=== PATIENT | female | born 1945 | race African-American/Black ===

== ENCOUNTER → 2019-08-06 | Outpatient (CLI) | payer MEDICARE, OTHER ==
[~2019-08-06] MED LIST: ALLERGY RELIEF PO; ARICEPT5 MG PO; ASPIR 8181 MG PO; CRESTOR10 MG PO; DIOVAN160 MG PO; GABAPENTIN300 MG PO; IBUPROFEN PO; LISINOPRIL20 MG PO; MELOXICAM15 MG PO; MULTIVITAMINS1 EAC8 PO; NORCO 5-325 TA1 EACH PO; ROBAXIN500 MG PO; SIMVASTATIN40 MG PO; SINGULAIR10 MG PO; ULTRAM 50MG50 MG PO; VITAMIN E PO; VITAMIN E400 UNI2 PO; XARELTO10 MG PO
[2019-08-06 12:29] LABS: BASOPHILS % 0.3 % (0.0-1.0); EOSINOPHILS # (AUTO) 0.1 (0.0-0.4); EOSINOPHILS % 0.9 % (0.0-6.0); HEMATOCRIT 41.3 % (34.2-44.1); HEMOGLOBIN 13.7 g/dL (12.0-16.0); LYMPHOCYTES # (AUTO) 1.5 (1.0-3.2); LYMPHOCYTES % 24.1 % (18.0-39.1); MEAN CORPUSCULAR HEMOGLOBIN 29.5 pg (28-32); MEAN CORPUSCULAR HGB CONC 33.2 g/dL (31-35); MEAN CORPUSCULAR VOLUME 88.8 fL (81-99); MONOCYTES # (AUTO) 0.3 (0.2-0.8); MONOCYTES % 5.3 % (4.4-11.3); NEUTROPHILS # (AUTO) 4.4 (2.1-6.9); NEUTROPHILS % 69.1 % (38.7-80.0); PLATELET COUNT 186 x10e3/uL (140-360); RED BLOOD COUNT 4.65 x10e6/uL (3.6-5.1); RED CELL DISTRIBUTION WIDTH 14.4 % (11.7-14.4)
[2019-08-06 12:42] LABS: CLARITY,URINE CLEAR (CLEAR); COLOR,URINE YELLOW (YELLOW); LEUKOCYTE ESTERASE ,URINE NEGATIVE (NEGATIVE); NITRITE,URINE NEGATIVE (NEGATIVE)
[2019-08-06 12:43] LABS: BILIRUBIN,URINE NEGATIVE (NEGATIVE); KETONES,URINE NEGATIVE (NEGATIVE); PROTEIN,URINE DIPSTICK NEGATIVE (NEGATIVE); URINE UROBILINOGEN 0.2 mg/dL (0.2 - 1)
[2019-08-06 12:44] LABS: ANION GAP 13.7 mmol/L (8-16); BLOOD UREA NITROGEN 11 mg/dL (7-26); BUN/CREATININE RATIO 12 (6-25); CALCIUM 9.7 mg/dL (8.4-10.2); CARBON DIOXIDE 29 mmol/L (22-29); CHLORIDE 104 mmol/L (98-107); CREATININE, SERUM 0.92 mg/dL (0.57-1.11); EST GLOMERULAR FILTRATION RATE > 60 ML/MIN (60-); GLUCOSE 84 mg/dL (74-118); POTASSIUM 3.7 mmol/L (3.5-5.1); SODIUM 143 mmol/L (136-145)
--- NOTE | 2019-08-06 12:54 | Diagnostic Imaging Report ---
EXAMINATION: CHEST 2 VIEWS INDICATION: Pre-operative COMPARISON: None FINDINGS: LINES/TUBES:None LUNGS:The lungs are well-inflated. No focal consolidation or pulmonary edema. PLEURA:No pleural effusion or pneumothorax. MEDIASTINUM:The cardiomediastinal silhouette appears normal in size and shape. BONES/SOFT TISSUES:No acute osseous injury. ABDOMEN:No free air under the diaphragm. IMPRESSION: No focal pneumonia or pulmonary edema. Signed by: Eliel Keane MD on 08/06/2019 12:52 PM
== END ==
LOC: RAD 05:00 → EDSTATUS 08-10 13:00
PROVIDERS: ATTEND Specialist
DX: Z01.818 Encounter for other preprocedural examination (principal); M17.11 Unilateral primary osteoarthritis, right knee
CPT/HCPCS: 36415; 71046; 80048; 81003; 85025; 86850; 86900; 93005

== ENCOUNTER 2019-08-31 10:01 | Observation (INO) | payer OTHER ==
[~2019-08-31] VITALS: Ht 167.6 cm; Wt 94.8 kg
[~2019-08-31 10:01] MED LIST changes: -NORCO 5-325 TA1 EACH PO; -XARELTO10 MG PO
--- OUTSIDE RECORDS SUMMARY | 2019-08-31 10:16 | XMS REPORT ---
Author Author [facility] Address Unknown Phone Unavailable Care Team Providers Care Byproducts Operator Name Role Phone LIBRA GARCIA Unavailable Unavailable Problems This patient has no known problems. Allergies, Adverse Reactions, Alerts This patient has no known allergies or adverse reactions. Medications This patient has no known medications. Results Test Description Test Time Test Comments Text Results Atomic Results Result Comments CHEST 2 VIEWS 2019-08-06 12:52:00 [place] [address] Patient Name: MANDI ANGELA MR #: [id number] : 1945 Age/Sex: 74/F Req #: [id number] Adm Physician: Ordered by: LIBRA GARCIA MD Report #: [id number] Location: OR Room/Bed: Procedure: [id number] DX/CHEST 2 VIEWS Exam Date: 08/06/19 Exam Time: 1233 REPORT STATUS: Signed EXAMINATION: CHEST 2 VIEWS INDICATION: Pre-operative COMPARISON: None FINDINGS: LINES/TUBES:None LUNGS:The lungs are well-inflated. No focal consolidation or pulmonary edema. PLEURA:No pleural effusion or pneumothorax. MEDIASTINUM:The cardiomediastinal silhouette appears normal in size and shape. BONES/SOFT TISSUES:No acute osseous injury. ABDOMEN:No free air under the diaphragm. IMPRESSION: No focal pneumonia or pulmonary edema. Signed by: Gayla Ellington MD on 08/06/2019 12:52 PM Dictated By: GAYLA ELLINGTON MD 125 Transcribed By: ROBERT COBURN on 08/06/191251 COPY TO: LIBRA GARCIA MD
[2019-08-31] MEDS ORDERED: CEFAZOLIN SOD 1 GM/NS 50ML 100 ML IV ONE (10:44)
[2019-08-31] MEDS ORDERED: BACITRACIN 50,000 UNIT VIAL ONE ×2 (11:54→12:10)
[2019-08-31] MEDS ORDERED: NALOXONE HCL INJ 0.4 MG/ML AMP IV PRN (15:45)
[2019-08-31] MEDS ORDERED: HYDROMORPHONE 0.2MG/ML-SOD CHL 30ML PCA SYRINGE IV PRN (15:45)
[2019-08-31] MEDS ORDERED: HYDROMORPHONE 1MG/1ML INJ ONE (15:53)
[2019-08-31] MEDS ORDERED: HYDRALAZINE HCL 20 MG/ML VIAL ONE (16:43)
--- NOTE | 2019-08-31 16:44 | Diagnostic Imaging Report ---
Right knee, 2 views Clinical indications: Postop Comparison: None Findings: Patient is status post right total knee arthroplasty. Alignment is anatomic. No periprosthetic fractures are identified. Signed by: Cornel Alamo MD on 08/31/2019 4:41 PM
[2019-08-31] MEDS ORDERED: FENTANYL CITRATE/PF 100MCG/2 ML INJ ONE ×2 (16:46→18:53)
--- NOTE | 2019-08-31 17:30 | NUR ---
PT TO THE FLOOR FROM PACU. VITALS WNL. PT DENIES NEEDS AT THIS TIME,.
[2019-08-31 17:41] VITALS: BP 113/56
[2019-08-31 18:00] VITALS: BP 113/56
[2019-08-31] MEDS ORDERED: ONDANSETRON HCL INJ 2MG/ML 2ML 2 MG/ML VIAL ONE (18:41)
[2019-08-31] MEDS ORDERED: PROPOFOL IV EMULSION 10 MG/ML 20 ML VIAL ONE (18:41)
[2019-08-31] MEDS ORDERED: DEXAMETHASONE SOD PHOS INJ 4 MG/ML VIAL ONE (18:41)
[2019-08-31] MEDS ORDERED: SEVOFLURANE INHAL SOLN 250 ML PEN BTL ONE (18:41)
[2019-08-31] MEDS ORDERED: GLYCOPYRROLATE INJ 0.2 MG/ML VIAL ONE (18:41)
[2019-08-31] MEDS ORDERED: ACETAMINOPHEN 1000 MG/100 ML IV ONE (18:41)
[2019-08-31] MEDS ORDERED: LIDOCAINE HCL 2% LOCAL INJ 5 ML SDV VIAL INJ ONE (18:41)
[2019-08-31] MEDS: SODIUM CHLORIDE 0.9% 1000ML 1,000 ML IV SCH (18:44)
[2019-08-31] MEDS: ACETAMINOPHEN 1000 MG/100 ML IV SCH (18:45)
[2019-08-31] MEDS ORDERED: ROPIVACAINE 0.5% 5 MG/ML 30 ML SDV ONE (18:47)
[2019-08-31] MEDS ORDERED: MIDAZOLAM HCL 2 MG/2 ML VIAL ONE (18:53)
--- NOTE | 2019-08-31 19:20 | NUR ---
RECEIVED THE PATIENT IN REPORT.STABLE CONDITION.LYEING IN THE BED.MART DRAINING WELL.ON CORPORATE RESPONSIBILITY OFFICER DILAUDID. R.KNEE DRESSING DRY.USES ICS.BED ALARM ON.BED LOCKED AND IN LOWEST POSITION.PHONE AND CALL LIGHT WITHIN REACH.INSTRUCTED TO CALL FOR ASSISTANCE NEEDED.
[2019-08-31 20:00] VITALS: BP 102/63
[2019-08-31 21:02] VITALS: BP 102/63
[2019-08-31] MEDS: CEFAZOLIN SOD 1 GM/NS 50ML 50 ML IV SCH (21:44)
--- NOTE | 2019-08-31 22:30 | NUR ---
CPM APPLIED TO RIGHT LEG @ FLEXION DEGREE 50
[2019-08-31] MEDS: ONDANSETRON HCL INJ 2MG/ML 2ML 2 MG/ML VIAL IV PRN (22:43)
--- NOTE | 2019-08-31 23:52 | Operative Report ---
DATE OF PROCEDURE: 08/31/2019 SURGEON: Dell Rodrigues MD PREOPERATIVE DIAGNOSIS: End-stage arthritis, right knee. POSTOPERATIVE DIAGNOSIS: End-stage arthritis, right knee. OPERATIONS AND PROCEDURE PERFORMED: The patient underwent a right total knee arthroplasty with a size F femoral component, a size 7 tibial component, a 14 mm tibial insert, and a 38 patella button. This is the Ana NexGen knee system. ELECTRICAL AUTOMATION ENGINEER: WINTER Martinez. ANESTHESIA: General endotracheal intubation anesthesia as well as a regional block. IV FLUIDS: As per the anesthesia record. BLOOD LOSS: Approximately 150 mL. COMPLICATIONS: None. BRIEF DESCRIPTION OF THE PATIENT'S OPERATIVE PROCEDURE: Ms. Kim was taken to the operating room, placed in the supine position on the operating table. Following induction of general anesthesia as well as endotracheal intubation, the patient's right lower extremity was examined under anesthesia. She was found to have a valgus aligned lower extremity. Range of motion of the knee joint was well preserved. There was patellofemoral crepitus. There was mild effusion within the knee. The patient's right lower extremity was prepped and draped in standard surgical fashion. The case was begun by creating a linear incision along the long axis of the leg centered over the knee joint. This incision was carried through skin and subcutaneous tissues to the extensor mechanism. Full-thickness skin flaps were elevated medially and the extensor mechanism was fully exposed. The extensor mechanism was then incised along its medial border beginning approximately 8 cm proximal to the patella and extending to just distal to the tibial tubercle. The patella was everted and osteophytes were excised from the patella, tibia and femur. The patella was measured for later reaming. The fat pad was excised and the medial soft tissues were elevated taking care to protect the medial collateral ligament. The anterior horns of the medial and lateral meniscus were also excised at this time. The knee was placed in flexion and retractors were placed about the knee joint protecting the vital neurovascular structures. The anterior and posterior cruciate ligaments were resected. The femur was sized and the 5-in-1 femoral cutting block was affixed to the femur. The femoral cuts were performed. The intercondylar notch cutting block was then affixed to the femur and the notch cut was performed. The finishing block was then affixed to the femur and the posterior chamfer block was performed. Attention was then turned to the tibia. A posterior knee retractor was placed behind the tibia, protecting the vital neurovascular structures. The external tibial alignment guide was affixed to the tibia and adjusted appropriately. The proximal tibia was cut. The keel cutting device was then affixed to the tibia and the keel cut was performed. The trial femoral and tibial inserts were then placed in the knee and the soft tissues were balanced. Trial tibial inserts were inserted into the knee until a stable knee was achieved. The patella was then reamed and a trial patella button was affixed to the undersurface of the patella. The patellofemoral joint was reduced and the knee was placed through motion, found to be stable. All trial components were removed from the knee. The femoral, tibial, and patellar surfaces were prepared for cementation. Cement was mixed on the back table. The femoral, tibial and patellar components were then cemented into place. Once the cement had cured, a 14 mm tibial insert was inserted into the tibial tray. The knee was again reduced and placed in motion, found to be stable. Hemostasis was obtained. The wound was copiously irrigated with bacitracin-laden normal saline. The extensor mechanism was repaired in a [id number]-nooau fashion with nonabsorbable sutures. The remaining soft tissues were closed in a multilayer fashion. Sterile dressings were applied. The sponge and needle counts were correct at the end of the case. Nicole Tyler acted as customer support assistant for this case and was necessary for the prepping and draping the patient as well as the retraction of soft tissues and the closure of the wounds and applications of bandages that allowed this case to be successful. MD DAYLIN Newberry/LANGL /[id number]
[2019-09-01] VITALS (8 sets, daily range): BP systolic 100–152; BP diastolic 59–70
[2019-09-01] MEDS: ACETAMINOPHEN 1000 MG/100 ML IV SCH ×3 (00:02→12:06)
[2019-09-01] MEDS: SODIUM CHLORIDE 0.9% 1000ML 1,000 ML IV SCH ×3 (01:36→18:16)
--- NOTE | 2019-09-01 02:07 | NUR ---
Wolfe care given.resting comfortably in the bed.
[2019-09-01] MEDS: CEFAZOLIN SOD 1 GM/NS 50ML 50 ML IV SCH ×2 (05:52→14:25)
[2019-09-01 06:18] LABS: HEMATOCRIT 32.1 % (34.2-44.1); HEMOGLOBIN 10.3 g/dL (12.0-16.0)
--- NOTE | 2019-09-01 06:21 | NUR ---
MART D/C.CATHETER TIP IS INTACT.PATIENT IS DUE TO VOID.
--- NOTE | 2019-09-01 07:00 | NUR ---
RECEIVED PATIENT AWAKE RESTING IN BED NO S/S OF DISTRESS. BED LOW, WHEELS LOCKED, SIDE RAILS X2. CALL LIGHT IN REACH WILL CONTINUE TO MONITOR PATIENT.
--- NOTE | 2019-09-01 07:00 | NUR ---
BSSR GIVEN TO ONCOMING RN.STABLE CONDITION.
--- NOTE | 2019-09-01 07:58 | NUR ---
NEW ORDER FROM DR. RODRIGUEZ TO DISCONTINUE BRANCH OFFICE MANAGER AND START PATIENT ON DILAUDID 0.5MG IV Q4 PRN. NEW ORDERS IMPLEMENTED.
[2019-09-01] MEDS ORDERED: HYDROMORPHONE 1MG/1ML INJ IV PRN (08:00)
[2019-09-01] MEDS: RIVAROXABAN 10 MG TABLET PO SCH ×2 (08:36→17:09)
--- NOTE | 2019-09-01 08:44 | NUR ---
DISCONTINUED PATIENTS RELIGIOUS ACTIVITIES DIRECTOR PUMP.
--- NOTE | 2019-09-01 08:47 | NUR ---
DR GARCIA OFFICE PREARRANGED FOLLOWING DISCHARGE PLAN OF:GOING HOME [address], SULEMAN LIVES WITH SON CHRISTIAN [phone] HOME HEALTH WITH HOME CARE PROVIDERS CONFIRMED WITH [facility] IN PERSON [facility] 3 IN ONE COMMODE, CPM, ELEVATED TOILET SEAT PROVIDED BY [employer] [phone]. I PROVIDED WALKER WITH WHEELS OBTAINED SIGNATURES AND FILED IN PACU FOR PROCESSING. ASH SIGNED AND ON CHART COPY LEFT WITH PATIENT GAVE CARD FOR QUESTIONS AND OR CONCERNS.
--- NOTE | 2019-09-01 10:20 | NUR ---
PATIENT HAS VOIDED SINCE MART REMOVAL.
[2019-09-01] MEDS: HYDROCODONE/APAP 5MG-325MG TAB PO PRN ×2 (10:35→18:15)
--- NOTE | 2019-09-01 10:54 | Consultation ---
DATE OF CONSULTATION: 09/01/2019 REASON FOR CONSULTATION: Medical management. HISTORY OF PRESENT ILLNESS: This is a 74-year-old woman, who was admitted to [facility] with diagnosis of end-stage right knee degenerative joint disease. Yesterday, the patient underwent successful right total knee replacement. On August 06, 2019, patient's hemoglobin was 13.7 g/dL. Today one day after surgery, patient's hemoglobin is 10.3 g/dL. The patient complains of lightheadedness and weakness, but she has been hypotensive overnight. The patient has not received her blood pressure medication today, namely valsartan. REVIEW OF SYSTEMS: GENERAL: Weight is stable. No fever or chills. She does complain of generalized weakness and lightheadedness. HEENT: No headaches. No visual changes. CARDIOVASCULAR/RESPIRATORY: No chest pain. No short of breath or cough. GI: No nausea, vomiting, diarrhea, or constipation. : Wolfe catheter removed. NEUROMUSCULAR: The patient complains of lower back pain, but states the pain in her knee is well controlled. ALLERGIES: NO KNOWN DRUG ALLERGIES. 1. Aspirin 81 mg daily. 2. Donepezil 10 mg daily. 3. Gabapentin 300 mg once daily. 4. Meloxicam 15 mg once daily as needed for arthritic pain. 5. Simvastatin 40 mg at bedtime. 6. Valsartan 320 mg b.i.d. FAMILY HISTORY: Noncontributory. SOCIAL HISTORY: This woman is single and she currently lives at home with her adult daughter. She is retired. No history of tobacco use. Drinks alcohol sporadically. PAST MEDICAL HISTORY: 1. Hypertensive heart disease. 2. Hyperlipidemia. 3. Mild cognitive impairment. 4. Sickle cell trait. PAST SURGICAL HISTORY: 1. Right total knee replacement yesterday. 2. Left total knee replacement in 2014. 3. Right foot spur resection. 4. section. PHYSICAL EXAMINATION: GENERAL: She is awake, alert, and fluent. She is pleasant and cooperative. Her quohmuvt-ph-bor is a bedside. VITAL SIGNS: Height 5 feet 6 inches, weight is 209 pounds, BMI 33. Blood pressure is 100/60, pulse 56, respiratory rate 18, temperature 98.1. INTEGUMENT: Skin is warm and dry. No pallor, jaundice or diaphoresis. HEENT: Anterior sclerae. Moist mucous membranes. NECK: Supple CARDIOVASCULAR: Bradycardic rate, regular rhythm. The patient has S4 gallop. LUNGS: No rales. No rhonchi or wheezes. ABDOMEN: Obese, yet benign. EXTREMITIES: The right knee surgical incision is currently dressed. No edema in legs. NEUROLOGIC: Intact. ADMIT DIAGNOSES: 1. End-stage right knee degenerative joint disease. 2. Status post right total knee replacement. 3. Hypertensive heart disease. 4. Hypotension, likely iatrogenic. 5. Postoperative anemia. PLAN: 1. Follow hemoglobin and hematocrit. 2. Hold blood pressure medications today. 3. We will stop intravenous hydromorphone since patient is hypotensive. 4. We will give normal saline fluid bolus. 5. We will hold meloxicam and aspirin after discharge since patient will go home on 21 days of Xarelto 10 mg daily to prevent deep venous thrombosis. 6. Encourage incentive spirometer usage to help prevent atelectasis. 7. Mobilize with physical therapy. I spent 45 minutes in care of this patient. I would like to thank Dr. Dell Rodrigues for this generous consult. MD SHARON Recinos/LEA /[id number]
[2019-09-01] MEDS: ONDANSETRON HCL INJ 2MG/ML 2ML 2 MG/ML VIAL IV PRN ×2 (12:13→20:08)
[2019-09-01] MEDS ORDERED: NORCO 5-325 TA1 EACH PO (16:32)
[2019-09-01] MEDS ORDERED: XARELTO10 MG PO (16:33)
--- NOTE | 2019-09-01 16:50 | NUR ---
REMOVED PATIENTS IV. CATHETER TIP INTACT AND PRESSURE DRESSING APPLIED.
--- NOTE | 2019-09-01 17:09 | NUR ---
CALL LIGHT PRESSED BY FAMILY. PATIENT IN BATHROOM IN PROCESS OF CHANGING TO GO HOME. FEELING DIZZY AND SWEATING. BLOOD PRESSURE- 134/65, HR-64, TEMP-98.9, O2- 99% 2LNC. PATIENT BACK TO BED CALL LIGHT IN REACH, WILL CONTINUE TO MONITOR. DR. JENNIFER HARTLEY.
--- NOTE | 2019-09-01 17:18 | NUR ---
SPOKE WITH DR. RODRIGUEZ. HOLD DISCHARGE UNTIL TOMORROW. CBC AND BMP ORDERED FOR TOMORROW AM. ORDER TO START PATIENT ON NS @ 100 CC/HR. NEW ORDERS IMPLEMENTED.
--- NOTE | 2019-09-01 20:00 | NUR ---
PATIENT STATED THAT "SIVERE PAIN".PAIN LEVEL RATED 9/10.DILAUDID 0.5 MG IV GIVEN.KEEP MONITOR THE PATIENT.
--- NOTE | 2019-09-01 21:10 | NUR ---
Assessment done.no resp distress.bed locked and in lowest position.phone and call light within reach.instructed to call for assistance as needed.comfortably resting with covering 3 blankets.
[2019-09-01] MEDS ORDERED: ACETAMINOPHEN 325 MG TAB PO PRN (22:00)
--- NOTE | 2019-09-01 22:10 | NUR ---
MILD FEVER NOTED.NOTIFIED TO .
[2019-09-02] MEDS: HYDROCODONE/APAP 5MG-325MG TAB PO PRN ×3 (00:06→12:54)
[2019-09-02 00:59] VITALS: BP_SYST 139
--- NOTE | 2019-09-02 04:00 | NUR ---
PATIENT TOLERATES THE DIET.RESTED WELL DURING NIGHT.
[2019-09-02] MEDS: SODIUM CHLORIDE 0.9% 1000ML 1,000 ML IV SCH (05:24)
[2019-09-02 05:31] VITALS: BP 138/55
--- NOTE | 2019-09-02 06:00 | NUR ---
DRESSING CHANGED.BROOKE MENG APPLIED.PLACED CPM ON AFTER ADMINISTERING PAIN MEDICATION.STABLE CONDITION.
[2019-09-02 06:29] LABS: BASOPHILS % 0.1 % (0.0-1.0); HEMATOCRIT 31.9 % (34.2-44.1); HEMOGLOBIN 10.4 g/dL (12.0-16.0); LYMPHOCYTES # (AUTO) 1.2 (1.0-3.2); LYMPHOCYTES % 11.9 % (18.0-39.1); MEAN CORPUSCULAR HEMOGLOBIN 29.1 pg (28-32); MEAN CORPUSCULAR HGB CONC 32.6 g/dL (31-35); MEAN CORPUSCULAR VOLUME 89.1 fL (81-99); MONOCYTES # (AUTO) 0.6 (0.2-0.8); MONOCYTES % 5.5 % (4.4-11.3); NEUTROPHILS # (AUTO) 8.1 (2.1-6.9); NEUTROPHILS % 82.1 % (38.7-80.0); PLATELET COUNT 153 x10e3/uL (140-360); RED BLOOD COUNT 3.58 x10e6/uL (3.6-5.1); RED CELL DISTRIBUTION WIDTH 14.3 % (11.7-14.4)
[2019-09-02 06:50] LABS: ANION GAP 13.9 mmol/L (8-16); BLOOD UREA NITROGEN 8 mg/dL (7-26); CALCIUM 8.7 mg/dL (8.4-10.2); CARBON DIOXIDE 23 mmol/L (22-29); CHLORIDE 106 mmol/L (98-107); GLUCOSE 106 mg/dL (74-118); POTASSIUM 3.9 mmol/L (3.5-5.1); SODIUM 139 mmol/L (136-145)
--- NOTE | 2019-09-02 06:58 | NUR ---
BED SIDE SHIFT REPORT GIVEN TO ONCOMING RN.STABLE CONDITION.
--- NOTE | 2019-09-02 07:00 | NUR ---
RECEIVED PATIENT AWAKE RESTING IN BED NO S/S OF DISTRESS. BED LOW, WHEELS LOCKED, SIDE RAILS X2, CALL LIGHT WITHIN REACH WILL CONTINUE TO MONITOR PATIENT.
[2019-09-02 07:59] VITALS: BP 124/60
[2019-09-02 08:10] LABS: BUN/CREATININE RATIO 9 (6-25); EST GLOMERULAR FILTRATION RATE > 60 ML/MIN (60-)
[2019-09-02] MEDS ORDERED: ONDANSETRON HCL 4 MG ORAL DISINTEGRATING TAB PO PRN (08:15)
[2019-09-02 09:01] VITALS: BP 124/60
--- NOTE | 2019-09-02 10:14 | Progress Note ---
DATE: 09/02/2019 CHIEF COMPLAINT/HISTORY OF PRESENT ILLNESS: This is a 74-year-old woman, who initially was admitted to [facility] with a diagnosis of end-stage right knee arthritis. During this hospitalization, she underwent successful right total knee arthroplasty. The patient tolerated surgery quite well. The patient did participate in physical therapy twice a day during her brief hospitalization. Her discharge was held for 1 day because she did experience lightheadedness as well as dizziness when she became upright. The patient was started on intravenous fluids. During her stay, her blood pressure normalized. On discharge, her condition was stable. DISCHARGE MEDICATIONS: 1. Donepezil 10 mg daily. 2. Xarelto 10 mg daily for 21 days. 3. Gabapentin 300 mg once daily as needed for neuropathic pain. 4. [place] 5/325 one every 4 hours p.r.n. pain, 40 prescribed. 5. Simvastatin 40 mg at bedtime. 6. Valsartan 160 mg b.i.d. FOLLOWUP INSTRUCTIONS: The patient was instructed to follow up with Dr. Rodrigues, her orthopedic surgeon within 1-2 weeks and with her primary care physician also within 2 weeks. MD SHARON Recinos/LEA /[id number] cc: Dell Rodrigues MD
[2019-09-02 12:00] VITALS: BP 144/67
--- NOTE | 2019-09-02 14:35 | NUR ---
REMOVED PATIENTS IV. CATHETER TIP INTACT AND PRESSURE DRESSING APPLIED.
--- NOTE | 2019-09-02 14:39 | NUR ---
PATIENT DISCHARGED FROM FACILITY. PATIENT GATHERED ALL PERSONAL BELONGINGS, DISCHARGE INSTRUCTIONS AND FOLLOW UP INFORMATION. PATIENT LEFT UNIT IN WHEELCHAIR AND WENT HOME VIA PRIVATE AUTO. NO S/S OF DISTRESS WHEN LEAVING FACILITY.
== END 2019-09-02 14:40 | disposition home or self-care (01) ==
LOC: OR 10:01 → PACU V 16:16 → MED/SURG 17:31
PROVIDERS: ADMIT Specialist; ATTEND Specialist
DX: M17.0 Bilateral primary osteoarthritis of knee (principal); Z96.652 Presence of left artificial knee joint; I11.0 Hypertensive heart disease with heart failure; I50.9 Heart failure, unspecified; E78.5 Hyperlipidemia, unspecified; G31.84 Mild cognitive impairment of uncertain or unknown etiology; I95.89 Other hypotension; D64.9 Anemia, unspecified
CPT/HCPCS: 27447; 36415 ×2; 73560; 80048; 85014; 85018; 85025; 86850; 86900; 86920; 97110; 97116 ×2; 97139 ×2; 97162; 97530 ×2; C1713 ×2; C1776 ×2; G0378 ×3; J0131 ×2; J0360; J0690 ×2; J1100; J1170 ×2; J2001; J2250; J2405 ×2; J2704; J2795; J3010; J7030 ×3

== ENCOUNTER → 2019-09-24 | Outpatient (CLI) | payer MEDICARE, OTHER ==
[~2019-09-24] MED LIST changes: +NORCO 5-325 TA1 EACH PO; +XARELTO10 MG PO
== END ==
LOC: RAD 15:32
PROVIDERS: ATTEND Specialist
DX: M79.89 Other specified soft tissue disorders (principal); Z98.890 Other specified postprocedural states
CPT/HCPCS: 93971

== ENCOUNTER 2022-09-09 08:05 | Observation (INO) | payer MEDICARE, OTHER ==
[2022-09-05 11:43] LABS: BASOPHILS % 0.5 % (0.0-1.0); EOSINOPHILS % 0.8 % (0.0-6.0); HEMOGLOBIN 12.7 g/dL (12.0-16.0); LYMPHOCYTES # (AUTO) 1.6 (1.0-3.2); LYMPHOCYTES % 41.8 % (18.0-39.1); MEAN CORPUSCULAR HGB CONC 32.6 g/dL (31-35); MONOCYTES # (AUTO) 0.3 (0.2-0.8); MONOCYTES % 6.6 % (4.4-11.3); NEUTROPHILS % 49.8 % (38.7-80.0); PLATELET COUNT 173 x10e3/uL (140-360); RED BLOOD COUNT 4.38 x10e6/uL (3.6-5.1); RED CELL DISTRIBUTION WIDTH 14.8 % (11.7-14.4)
[2022-09-05 12:00] LABS: ALBUMIN 3.7 g/dL (3.5-5.0); ALBUMIN/GLOBULIN RATIO 1.1 (0.8-2.0); ANION GAP 14.3 mmol/L (8-16); CALCIUM 9.5 mg/dL (8.4-10.2); CREATININE, SERUM 0.94 mg/dL (0.57-1.11); POTASSIUM 4.3 mmol/L (3.5-5.1)
[~2022-09-09] VITALS: Ht 167.6 cm; Wt 91.2 kg
[~2022-09-09 08:05] MED LIST changes: +BENICAR5 MG PO; +IBUPROFEN400 MG PO; +MELOXICAM7.5 MG PO; +VIT B12 PO
[2022-09-09] MEDS ORDERED: LIDOCAINE JELLY 2% 10ML URO-JET ONE (09:32)
[2022-09-09] MEDS ORDERED: LIDOCAINE HCL 1% 30ML-PF VIAL ONE (09:32)
[2022-09-09] MEDS ORDERED: BUPIVACAINE 0.5%/EPI 30 ML SDV INJ ONE (09:32)
[2022-09-09] MEDS ORDERED: ONDANSETRON HCL INJ 2MG/ML 2ML 2 MG/ML VIAL IV PRN (11:30)
[2022-09-09] MEDS ORDERED: FENTANYL CITRATE/PF 100MCG/2 ML INJ ONE (12:13)
[2022-09-09] MEDS ORDERED: ONDANSETRON HCL INJ 2MG/ML 2ML 2 MG/ML VIAL ONE (12:57)
[2022-09-09] MEDS ORDERED: SEVOFLURANE INHAL SOLN 250 ML PEN BTL ONE (12:57)
[2022-09-09] MEDS ORDERED: PROPOFOL IV EMULSION 10 MG/ML 20 ML VIAL ONE (12:57)
[2022-09-09] MEDS ORDERED: DEXAMETHASONE SOD PHOS INJ 4 MG/ML SDV ONE (12:57)
[2022-09-09] MEDS ORDERED: EPHEDRINE SULFATE INJ 50 MG/ML VIAL ONE (12:57)
[2022-09-09] MEDS ORDERED: POVIDONE IODINE 0.05% 0.05 % ML PO ONE (12:57)
[2022-09-09] MEDS ORDERED: LIDOCAINE HCL 2% LOCAL INJ 5 ML SDV VIAL INJ ONE (12:57)
[2022-09-09] MEDS: SODIUM CHLORIDE 0.9% 1000ML 1,000 ML IV SCH ×2 (17:06→21:10)
[2022-09-09 17:17] VITALS: BP 104/57
[2022-09-09] MEDS ORDERED: VITAMIN C1000 MG PO (17:26)
[2022-09-09] MEDS ORDERED: MULTI-VITAMIN1 EACH PO (17:26)
[2022-09-09 17:31] VITALS: BP 104/57
[2022-09-09] MEDS ORDERED: ACETAMINOPHEN 1000 MG/100 ML IV PRN (18:00)
[2022-09-09] MEDS: HYDROMORPHONE 1MG/1ML INJ IV PRN ×2 (18:42→21:52)
[2022-09-09 20:00] VITALS: BP 124/69
[2022-09-09 20:30] VITALS: BP 124/69
[2022-09-09] MEDS: HYDROCODONE/APAP 7.5MG-325MG 1 EA TAB PO PRN (23:58)
[2022-09-10] VITALS: BP 132/81
[2022-09-10] MEDS: SODIUM CHLORIDE 0.9% 1000ML 1,000 ML IV SCH (03:49)
[2022-09-10] MEDS: HYDROCODONE/APAP 7.5MG-325MG 1 EA TAB PO PRN ×2 (03:52→11:41)
[2022-09-10 04:00] VITALS: BP 128/73
[2022-09-10 06:13] LABS: BASOPHILS % 0.2 % (0.0-1.0); EOSINOPHILS % 0.2 % (0.0-6.0); HEMATOCRIT 32.8 % (34.2-44.1); HEMOGLOBIN 11.3 g/dL (12.0-16.0); LYMPHOCYTES # (AUTO) 1.4 (1.0-3.2); MEAN CORPUSCULAR HEMOGLOBIN 32.1 pg (28-32); MEAN CORPUSCULAR HGB CONC 34.5 g/dL (31-35); MEAN CORPUSCULAR VOLUME 93.2 fL (81-99); MONOCYTES # (AUTO) 0.5 (0.2-0.8); MONOCYTES % 8.8 % (4.4-11.3); NEUTROPHILS # (AUTO) 3.8 (2.1-6.9); NEUTROPHILS % 66.6 % (38.7-80.0); PLATELET COUNT 143 x10e3/uL (140-360); RED BLOOD COUNT 3.52 x10e6/uL (3.6-5.1); RED CELL DISTRIBUTION WIDTH 17.2 % (11.7-14.4)
[2022-09-10 06:40] LABS: ANION GAP 11.3 mmol/L (8-16); CALCIUM 8.5 mg/dL (8.4-10.2); CREATININE, SERUM 0.85 mg/dL (0.57-1.11); POTASSIUM 4.3 mmol/L (3.5-5.1)
[2022-09-10] MEDS: HYDROMORPHONE 1MG/1ML INJ IV PRN (07:01)
[2022-09-10 08:00] VITALS: BP 97/61
[2022-09-10] MEDS ORDERED: ONDANSETRON HCL 4 MG ORAL DISINTEGRATING TAB SL PRN (10:30)
[2022-09-10 12:04] VITALS: BP 91/51
[2022-09-10 13:00] VITALS: BP 115/61
== END 2022-09-10 14:25 | disposition home or self-care (01) ==
LOC: OR 08:05 → PACU V 11:23 → MED/SURG2 16:42
PROVIDERS: ADMIT Surgery; ATTEND Surgery
DX: K64.5 Perianal venous thrombosis (principal); K62.2 Anal prolapse; Z20.822 Contact with and (suspected) exposure to COVID-19; Z01.818 Encounter for other preprocedural examination; I10 Essential (primary) hypertension; Z86.73 Personal history of transient ischemic attack (TIA), and cerebral infarction without residual deficits
CPT/HCPCS: 36415 ×2; 46260; 46700; 71046; 80048; 80053; 85025 ×2; 88304; 93005; G0378 ×2; J0131; J0694 ×2; J1100; J1170 ×2; J2001 ×2; J2405; J2704; J3010; J7030 ×2; U0002